=== PATIENT | male | born 1985 | race Caucasian/White ===

== ENCOUNTER 2024-04-24 12:28 | Emergency (ER) | payer BC ==
[~2024-04-24] VITALS: Ht 182.9 cm; Wt 118.1 kg
[2024-04-24 13:08] LABS: BASO % 0.3 % (0.0-1.0); EOS # 0.1 10^3/uL (0.0-0.5); EOS % 0.8 % (0.0-3.0); HEMATOCRIT 43.6 % (42.0-52.0); HEMOGLOBIN 15.3 g/dl (13.5-17.5); LYMPH # 0.8 10^3/uL (1.5-5.0); LYMPH % 12.6 % (24.0-44.0); MEAN CORPUSCULAR HEMOGLOBIN 30.5 pg (27.0-33.0); MEAN CORPUSCULAR HGB CONC 35.1 g/dl (32.0-36.5); MEAN CORPUSCULAR VOLUME 86.9 fl (80.0-96.0); MONO # 0.5 10^3/uL (0.0-0.8); MONO % 7.2 % (2.0-8.0); NEUTROPHILS % 78.6 % (36.0-66.0); PLATELET COUNT, AUTOMATED 203 10^3/uL (150-450); RED BLOOD COUNT 5.02 10^6/uL (4.30-6.10); WHITE BLOOD COUNT 6.4 10^3/uL (4.0-10.0)
[2024-04-24 13:26] LABS: CK-MB VALUE MASS 1.2 NG/ML (<3.6)
[2024-04-24 13:27] LABS: ETHYL ALCOHOL (ETHANOL) < 0.003 % (0.000-0.010)
[2024-04-24 13:28] LABS: BLOOD UREA NITROGEN 16 MG/DL (9-23); CARBON DIOXIDE LEVEL 23 MMOL/L (20-31); CHLORIDE LEVEL 109 MMOL/L (98-107); CREATININE FOR GFR 1.27 MG/DL (0.70-1.30); GLOMERULAR FILTRATION RATE > 60.0 (>60); GLUCOSE, FASTING 119 MG/DL (60-100); MAGNESIUM LEVEL 2.1 MG/DL (1.8-2.4); POTASSIUM SERUM 4.2 MMOL/L (3.5-5.1); SODIUM LEVEL 141 MMOL/L (136-145)
[2024-04-24 13:29] LABS: CPK CREATINE PHOSPHOKINASE 174 U/L (46-171); MB/CK RELATIVE INDEX 0.68 (< OR =4)
[2024-04-24 13:30] LABS: THYROID STIMULATING HORMONE 1.797 uIU/ML (0.55-4.78)
[2024-04-24] MEDS: NS 1,000 ML IV ONE ×2 (13:32→13:33)
[2024-04-24] MEDS: FAMOTIDINE 20MG/2ML VIAL IVP ONE (13:32)
[2024-04-24] MEDS: ONDANSETRON 4MG 2ML VIAL IV ONE (13:32)
[2024-04-24 15:02] VITALS: BP 135/84
[2024-04-24 15:16] VITALS: TEMP 98.1; O2SAT 98
== END 2024-04-24 15:32 | disposition home or self-care (01) ==
LOC: M ED 12:28
DX: E86.0 Dehydration (principal); R55 Syncope and collapse; K21.9 Gastro-esophageal reflux disease without esophagitis; F41.9 Anxiety disorder, unspecified; F32.A Depression, unspecified; F10.10 Alcohol abuse, uncomplicated
CPT/HCPCS: 71045; 80048; 82077; 82550; 82553; 83735; 84443; 84484; 85025; 93005; 93041; 94760; 96361; 96374; 99285; J2405; S0028